=== PATIENT | female | born 1960 | race Caucasian/White ===

== ENCOUNTER → 2021-01-26 | Outpatient (CLI) | payer OTHER | LOC: KOH-I 12:31 | DX: M25.551 Pain in right hip (principal); M87.9 Osteonecrosis, unspecified; M16.11 Unilateral primary osteoarthritis, right hip | CPT/HCPCS: 73721 ==

== ENCOUNTER → 2021-03-20 | Outpatient (CLI) | payer OTHER ==
[~2021-03-20] MED LIST: AMBIEN10 MG PO; ARMOUR THYROID90 MG PO; BREO ELLIPTA 11 EACH INH; CETIRIZINE HCL10 MG PO; CRESTOR10 MG PO; CYCLOBENZAPRINE10 MG PO; FLUTICASONE SPRAY; NABUMETONE500 MG PO; PAIN RELIEVER650 MG PO; PROVENTIL HFA6.7 GM INH; TOPROL XL25 MG PO; VITAMIN D31250 MCG PO; ZOLOFT100 MG PO
[2021-03-20 11:11] LABS: HEMOGLOBIN 13.5 gm/dl (12.3-15.3); RED BLOOD COUNT 4.28 M/UL (4.00-5.10); WHITE BLOOD COUNT 8.1 K/UL (4.5-11.0)
[2021-03-20 11:33] LABS: BUN/CREATININE RATIO 16 (0-10)
== END ==
LOC: OPSV2 10:12 → EDSTATUS 10:30 → OPSV2 10:30
PROVIDERS: Orthopaedic Surgery
DX: Z01.818 Encounter for other preprocedural examination (principal); M87.851 Other osteonecrosis, right femur
CPT/HCPCS: 80048; 81001; 85025; 87081; 93005

== ENCOUNTER → 2021-03-31 | Outpatient (CLI) | payer OTHER ==
[~2021-03-31] MED LIST changes: +HYDROCODON-ACE1 EAC2 PO
[2021-03-31 14:29] LABS: BUN/CREATININE RATIO 20 (0-10)
== END ==
LOC: LAB 12:50
PROVIDERS: Orthopaedic Surgery
DX: Z01.812 Encounter for preprocedural laboratory examination (principal)
CPT/HCPCS: 36415; 80048; 86850; 86900; 86901

== ENCOUNTER 2021-04-01 05:11 | Day surgery (SDC) | payer OTHER ==
[~2021-04-01] VITALS: Ht 162.6 cm; Wt 73.0 kg
[~2021-04-01 05:11] MED LIST changes: -HYDROCODON-ACE1 EAC2 PO
[2021-04-01] MEDS ORDERED: HYDROCODON-ACE1 EAC2 PO (10:44)
[2021-04-02 07:51] LABS: HEMOGLOBIN 9.5 gm/dl (12.3-15.3); RED BLOOD COUNT 3.09 M/UL (4.00-5.10); WHITE BLOOD COUNT 19.6 K/UL (4.5-11.0)
[2021-04-02 08:45] LABS: BUN/CREATININE RATIO 16 (0-10)
[2021-04-02] MEDS ORDERED: ELIQUIS 2.5 MG2.5 MG PO (08:53)
== END 2021-04-02 13:57 | disposition home or self-care (01) ==
LOC: OR 05:11 → EDSTATUS 11:15 → OR 11:15 → M/S 12:48 → OR 04-02 13:57
PROVIDERS: Orthopaedic Surgery
DX: M87.851 Other osteonecrosis, right femur (principal); E78.5 Hyperlipidemia, unspecified; I10 Essential (primary) hypertension; E06.3 Autoimmune thyroiditis; Z79.82 Long term (current) use of aspirin; Z20.822 Contact with and (suspected) exposure to COVID-19
CPT/HCPCS: 36415; 73502; 76000; 80048; 85025; 94640; 94664; 94760; 94762; 97116; 97116-GP-CQ; 97161; 97166; 97530; 97535; C1776; J0171; J0690; J1100; J2001; J2250; J2370; J2405; J2704; J2795; J3010; J3370; J7030; J7050; J7120